=== PATIENT | male | born 1955 | race Caucasian/White ===

== ENCOUNTER → 2016-12-10 | Outpatient (CLI) | payer MEDICARE | DX: R07.9 Chest pain, unspecified (principal); I07.1 Rheumatic tricuspid insufficiency | CPT/HCPCS: 78452; 93017; A9502 ==

== ENCOUNTER → 2017-02-15 | Outpatient (CLI) | payer MEDICARE | LOC: CT 14:31 | DX: D41.00 Neoplasm of uncertain behavior of unspecified kidney (principal); N28.89 Other specified disorders of kidney and ureter | CPT/HCPCS: J7050; Q9962 ==